=== PATIENT | female | born 1995 | race Caucasian/White ===

== ENCOUNTER 2019-07-13 02:31 | Emergency (ER) | payer OTHER ==
[2019-07-13 04:03] VITALS: BP 112/71; PULSE 84; TEMP 98.2; BMI 26.6
--- NOTE | 2019-07-13 04:07 | PDOC ---
Attending Attestation - Resident Resident Name: Dereje Pichardo - ED Attending Attestation I have performed the following: I have examined & evaluated the patient, The case was reviewed & discussed with the resident, I agree w/resident's findings & plan - HPI HPI: 07/13/19 05:02 Pt comes with bilateral knee pain. 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 Pt has no falls and no injuries, no infection and no rashes and no other joints involved - Physicial Exam PE: 07/14/19 02:50 Normal exam No ligament laxity no redness and no swelling and no rashes Pt afebrile Pt is able to ambulate. - Medical Decision Making 07/13/19 05:02 UA normal; no sign of infection. 07/14/19 02:51 Pt will change her footwear more regularly and she will get shoes that provide more arch support etc.
[2019-07-13] MEDS ORDERED: KETOROLAC TROMETHAMINE 60 MG/2 ML VIAL IM ONE (04:12)
[2019-07-13] MEDS ORDERED: ACETAMINOPHEN 325 MG TABLET (FP) PO ONE (04:12)
--- NOTE | 2019-07-13 04:18 | PDOC ---
History of Present Illness - General Chief Complaint: Pain, Acute Stated Complaint: BI LATERAL KNEE PAIN Time Seen by Provider: 07/13/19 04:01 History Source: Patient Exam Limitations: No Limitations - History of Present Illness Initial Comments: 07/13/19 04:28 23F with no PMH who presents with b/l knee pain. The patient states that she's had this pain for a year but now describes b/l joint line pain which is sharp and nonradiating. She states that the pain is worse after a long day but denies any redness, swelling, dysuria, vaginal discharge. Denies trauma. Past History - Past Medical History Allergies/Adverse Reactions: Allergies Allergy/AdvReac Type Severity Reaction Status Date / Time Penicillins Allergy Verified 07/13/19 04:03 strawberry Allergy Verified 07/13/19 04:03 Home Medications: Ambulatory Orders NK [No Known Home Medication] 07/13/19 - Psycho Social/Smoking Cessation Hx Smoking History: Never smoked Review of Systems - Review of Systems Able to Perform ROS?: Yes Is the patient limited Indonesian proficient: No Constitutional: No: Chills, Fever, Weakness Respiratory: No: Shortness of Breath, Wheezing Cardiac (ROS): No: Chest Pain, Palpitations ABD/GI: No: Nausea, Vomiting : No: Burning, Dysuria, Discharge Musculoskeletal: Yes: Other (Knee pain) *Physical Exam - Vital Signs Last Vital Signs Temp Pulse Resp BP Pulse Ox 98.2 F 84 19 112/71 99 07/13/19 02:31 07/13/19 02:31 07/13/19 02:31 07/13/19 02:31 07/13/19 02:31 - Physical Exam General Appearance: Yes: Nourished, Appropriately Dressed HEENT: positive: Normal Voice, Hearing Grossly Normal Neck: positive: Supple. negative: Tender Respiratory/Chest: positive: Lungs Clear. negative: Chest Tender Cardiovascular: positive: Regular Rhythm, Regular Rate, S1, S2. negative: Diastolic Murmur, Systolic Murmur Gastrointestinal/Abdominal: positive: Flat, Soft. negative: Tender Musculoskeletal: positive: Other (Normal R knee exam. L knee normal except for + Caitlyn test; no erythema, redness, or swelling) Medical Decision Making - Medical Decision Making 07/13/19 04:36 23F with no PMH who presents with 1 year of knee pain, acutely worsening tonight. PE unremarkable. Will obtain XR's and treat symptomatically for inflammation. Will give ortho f/u. 07/13/19 06:45 XR's negative. Will d/c with PCP f/u. Discharge - Discharge Information Problems reviewed: Yes Clinical Impression/Diagnosis: Knee pain Qualifiers: Chronicity: chronic Laterality: bilateral Qualified Code(s): M25.561 - Pain in right knee Condition: Fair Disposition: HOME - Admission No - Follow up/Referral Referrals: Boy Ochoa MD [Primary Care Provider] - Raghavendra Thomas DO [Staff Physician] - - Patient Discharge Instructions Patient Printed Discharge Instructions: DI for Knee Pain Additional Instructions: Your ER visit is not complete until your follow up with your primary care physician. Please follow up with your primary care physician in 1-2 days. Please return to the ER if you have any signs or symptoms of chest pain, shortness of breath, uncontrollable fever, chills, nausea, vomiting, numbness, tingling, or weakness in any part of your body, changes in vision, or slurred speech. Please return to the ER if symptoms persist, worsen, or new symptoms arise. Please take tylenol or motrin for your pain until you see Dr. Archuleta or Dr. Thomas (orthopedic surgeons). - Post Discharge Activity
[2019-07-13] MEDS ORDERED: ACETAMINOPHEN 325 MG TABLET (FP) ONE (04:54)
[2019-07-13] MEDS ORDERED: KETOROLAC TROMETHAMINE 60 MG/2 ML VIAL ONE (04:54)
[2019-07-13 04:56] LABS: URINE APPEARANCE CLOUDY; URINE BILIRUBIN NEGATIVE (NEGATIVE); URINE COLOR DK YELLOW; URINE GLUCOSE (UA) NEGATIVE (NEGATIVE); URINE KETONE NEGATIVE (NEGATIVE); URINE LEUK ESTERASE NEGATIVE (NEGATIVE); URINE NITRITE NEGATIVE (NEGATIVE); URINE PROTEIN NEGATIVE (NEGATIVE); URINE UROBILINOGEN 0.2 mg/dL (0.2-1.0)
[2019-07-13] MEDS ORDERED: LIDOCAINE 5% TOPICAL PATCH TP ONE (05:01)
[2019-07-13] MEDS ORDERED: LIDOCAINE PATCH REMOVAL MC SCH (22:00)
== END 2019-07-13 07:02 | disposition home or self-care (01) ==
LOC: JER 02:31
PROC: 3E0233Z Introduction of Anti-inflammatory into Muscle, Percutaneous Approach (ICD-10-PCS; principal; 2019-07-13)
DX: M25.561 Pain in right knee (principal); Z88.0 Allergy status to penicillin; Z91.018 Allergy to other foods
CPT/HCPCS: 36415; 73562-TC-LT-FY; 73562-TC-RT-FY; 81003; 84703; 87086; 87491; 87591; 99281-25